=== PATIENT | male | born 1960 | race Caucasian/White ===

== ENCOUNTER → 2025-10-07 15:01 | Outpatient (BNVA) | payer MEDICARE, SELFPAY | PROVIDERS: PCP Electrodiagnostic Medicine; Referring Provider Electrodiagnostic Medicine; Visit Provider Internal Medicine Cardiovascular Disease | DX: R07.9 Chest pain, unspecified (principal); I44.4 Left anterior fascicular block; R94.31 Abnormal electrocardiogram [ECG] [EKG]; I25.2 Old myocardial infarction | CPT/HCPCS: 93005 ==

== ENCOUNTER 2025-10-22 13:26 | Outpatient (CLI) | payer MEDICARE, SELFPAY ==
--- NOTE | 2025-10-22 13:30 | USCV_ITS ---
Pa Anant Age: 65 Gender: M : 1960 Exam Date: 10/22/2025 13:51 Ordering Phys: Christian Rivera MD ([email or web address]) Technologist: Exam Location: [facility] [place] Indication: hx of mi lv thrombus BP: 135 / 74 HR: 71 Rhythm: Sinus Technical Quality: Adequate MEASUREMENTS (Male / Female) Normal Values 2D ECHO LV Diastolic Diameter PLAX 5.4 cm 4.2 - 5.9 / 3.9 - 5.3 cm IVS Diastolic Thickness 1.5 cm 0.6 - 1.0 / 0.6 - 0.9 cm IVS Systolic Thickness 2.1 cm LVPW Diastolic Thickness 1.5 cm 0.6 - 1.0 / 0.6 - 0.9 cm LVPW Systolic Thickness 2.0 cm LVOT Diameter 2.4 cm LV Ejection Fraction 2D Teich 71.5 % LV Ejection Fraction MOD 4C 62.9 % LV Ejection Fraction MOD 2C 72.9 % LV Ejection Fraction 2C AL 70.3 % LA Diameter 4.2 cm RA Systolic Volume 4C AL 39.2 ml RA Systolic Volume 4C MOD 36.1 ml LA Sys Volume AL 40.0 cm cubed LA Sys Volume Index AL 17.2 cm cubed/m squared Aorta at Sinotubular Diameter 4.1 cm M-MODE LA Ao Ratio MM 1.4 AV Cusp Separation MM 2.4 cm DOPPLER AV Peak Velocity 122.0 cm/s LVOT Peak Velocity 65.0 cm/s AV Area Cont Eq vti 3.1 cm squared AV Area Cont Eq pk 2.4 cm squared MV Area PHT 4.6 cm squared Mitral E to A Ratio 1.0 TV Peak Velocity 192.0 cm/s TR Peak Velocity 218.0 cm/s TR Peak Gradient 19.0 mmHg TV Peak E Velocity 74.0 cm/s PV Peak Velocity 107.0 cm/s FINDINGS Left Ventricle Normal left ventricular cavity size. Normal left ventricular cavity size. Moderate left ventricular hypertrophy. Moderately decreased left ventricular systolic function which is estimated at 45% there appeared to be anterior and mid septal wall severe hypokinesis, there is apical akinesis. There appeared to be 2 separate echo genic mass first one on the anterior and septal attached to the anterior and septal wall measuring 4.7 cm care while other in the apex measuring 5.6 cm squared both appear to be organized.Grade I/IV diastolic dysfunction (abnormal relaxation filling pattern), normal to mildly elevated filling pressures. Right Ventricle Normal right ventricular size and systolic function. Right Atrium Normal right atrial size. Left Atrium Normal left atrial size. IA Septum Normal appearance of the interatrial septum. Mitral Valve Moderately thickened mitral valve. No mitral valve stenosis. Trace mitral valve regurgitation. Aortic Valve Moderate aortic valve calcification. No aortic valve stenosis. Trace aortic valve regurgitation. Tricuspid Valve Normal tricuspid valve structure. No tricuspid valve stenosis or regurgitation. Normal pulmonary pressure. Pulmonic Valve Normal pulmonic valve structure. No pulmonic valve stenosis or regurgitation. Pericardium No pericardial effusion. Aorta Normal diameter of the aortic root and ascending thoracic aorta. IVC Normal IVC diameter. CONCLUSIONS Normal left ventricular cavity size. Normal left ventricular cavity size. Moderate left ventricular hypertrophy. Moderately decreased left ventricular systolic function which is estimated at 45%. There appeared to be anterior and mid septal wall severe hypokinesis, there is apical akinesis. There appeared to be 2 separate echo genic mass first one on the anterior and septal attached to the anterior and septal wall measuring 4.7 cm care while other in the apex measuring 5.6 cm squared both appear to be organized.Grade I/IV diastolic dysfunction (abnormal relaxation filling pattern), normal to mildly elevated filling pressures. Moderate aortic valve calcification. No aortic valve stenosis. Trace aortic valve regurgitation. Moderately thickened mitral valve. No mitral valve stenosis. Trace mitral valve regurgitation. There is no pericardial effusion. Right atrial pressure is around 5 mm of mercury. Christian Rivera MD (Electronically Signed) Final Date: 05 November 2025 19:52 Amended: 05 November 2025 20:02 C
== END 2025-10-22 13:27 | disposition home or self-care (01) ==
PROVIDERS: PCP Electrodiagnostic Medicine; Visit Provider Internal Medicine Cardiovascular Disease
DX: I42.9 Cardiomyopathy, unspecified (principal); I51.7 Cardiomegaly; R93.1 Abnormal findings on diagnostic imaging of heart and coronary circulation; I05.9 Rheumatic mitral valve disease, unspecified; I35.8 Other nonrheumatic aortic valve disorders; I51.89 Other ill-defined heart diseases
CPT/HCPCS: 93306